=== PATIENT | female | born 2000 | race Caucasian/White ===

== ENCOUNTER 2022-03-04 12:33 | Emergency (ER) | payer MEDICAID, SELFPAY ==
[2022-03-04 13:24] VITALS: BP 130/58; PULSE 93; RESP 16; TEMP 36.3; O2SAT 100
[2022-03-04 13:44] VITALS: BP 130/58; PULSE 93; RESP 16; TEMP 36.3; O2SAT 100
--- NOTE | 2022-03-04 14:36 | ED.GENADULT ---
HPI - General Adult General Chief complaint: Abdominal Pain Stated complaint: Abdominal Pain Source: patient Mode of arrival: ambulatory Limitations: no limitations History of Present Illness HPI narrative: Patient presents for evaluation of left-sided pelvic cramping that occurred last night. Symptoms occurred approximately 1 hour and resolved. Pain radiated to the left side of her back down her left lower extremity. She has had similar symptoms in the past around the time she is menstruating. She is getting ready to start her period in the next week or so. She is not on contraception. She states she has had some increase in bleeding during her periods since she delivered her daughter vaginally about one year ago. She states yesterday and today she had some lower pelvic pain during receptive vaginal intercourse. No fever, chills, nausea, vomiting, urinary symptoms. No additional complaints or concerns. Related Data Allergies Allergy/AdvReac Type Severity Reaction Status Date / Time No Known Allergies Allergy Verified 03/04/22 13:44 Review of Systems Review of Systems: CONSTITUTIONAL: Denies fever, chills, or sweats. EYES: Denies visual changes, redness, or discharge. ENT: Denies rhinorrhea, congestion, sore throat, or otalgia. CARDIOVASCULAR: Denies chest pain, palpitations, or edema. RESPIRATORY: Denies cough or dyspnea. GASTROINTESTINAL: Denies abdominal pain, nausea, vomiting, or diarrhea. GENITOURINARY: Reports left-sided pelvic pain last night, now resolved. Denies vaginal bleeding/discharge/urinary symptoms. Reports some pelvic pain with receptive anal intercourse. SKIN: Denies rash or itching. MUSCULOSKELETAL: Denies back pain, joint pain, or myalgia. NEUROLOGIC: Denies headache, numbness, dizziness, or weakness. PSYCHIATRIC: Denies anxiety or depression. [facility] Past Medical History Medical History (Updated 03/04/22 @ 15:10 by William Spencer, RENNY, ) No pertinent past medical history Surgical History Surgical History No pertinent past surgical history Family History Family History Mother Family history non-contributory Social History Social History (Updated 03/04/22 @ 14:39 by William Spencer, RENNY, BC) Smoking status: Never smoker Alcohol intake: never Substance use: never Gender identity (if verbalized by the patient): Female Sexual Orientation (if Verbalized by the Patient): Straight or Heterosexual Spiritual care concerns: No Exam Narrative: GENERAL: Well-appearing, well-nourished, and in no acute distress. HEAD: Normocephalic, atraumatic. EYES: PERRLA and EOMI. ENT: Nares clear, no rhinorrhea or epistaxis. Mucous membranes moist. Oropharynx without tonsillar hypertrophy exudate or other lesions. Bilateral TMs pearly ortega nonbulging NECK: Supple. No adenopathy or masses. No carotid bruits or JVD CHEST: Clear to auscultation. No respiratory distress. No wheezes rales or rhonchi HEART: Regular rate and rhythm. No murmur heard. Normal peripheral pulses. ABDOMEN: Soft, nontender, nondistended, normal active bowel sounds. VAGINAL: No external genital lesions. No adnexal tenderness. No cervical motion tenderness. Moderate amount of milky white discharge in vaginal vault EXTREMITIES: Normal range of motion. No edema. SKIN: Warm, dry, no rash. NEURO: No focal deficits. Alert and oriented x3. PSYCH: Normal mood and affect. Course Course Emergency Course: This is a 22-year-old female who presented for evaluation of left-sided pelvic pain last night that has since resolved and additional pelvic discomfort that occurs during sexual intercourse. It sounds like she has recurrent pain around the time of her menstruation. I believe this is most consistent with ovarian cyst. She would likely benefit from a nonemergent ultrasound. She is not experiencing pain at t
== END 2022-03-04 15:12 | disposition home or self-care (01) ==
PROVIDERS: Emergency Provider Nurse Practitioner
DX: N76.0 Acute vaginitis (principal); R10.2 Pelvic and perineal pain
CPT/HCPCS: 81003; 81025; 87070; 87491; 87591; 87661; 99214; G0463

== ENCOUNTER 2022-07-12 16:36 | Emergency (ER) | payer MEDICAID, SELFPAY ==
[2022-07-12 16:44] VITALS: BP 130/64; PULSE 79; RESP 16; TEMP 36.8; O2SAT 99
--- NOTE | 2022-07-12 17:13 | ED.NAVMDI ---
HPI - Nausea/Vomiting/Diarrhea General Chief complaint: Nausea/Vomiting/Diarrhea Stated complaint: nausea and vomiting Source: patient and RN notes reviewed History of Present Illness HPI Narrative: 21-year-old female presents to urgent care with complaints vomiting x2 days. Patient states she is able to keep fluids down but not food. Patient reports intermittent stomach pains but nothing significant. Denies any diarrhea, fevers, chills, dysuria, chest pain, or shortness of breath. Patient does report headaches here and there. Patient states she is approximately 7 weeks . 3 para 1. Some parts of this dictation were generated by voice recognition software and may contain typographical and/or grammatical inaccuracies. Related Data Allergies Allergy/AdvReac Type Severity Reaction Status Date / Time No Known Allergies Allergy Verified 03/04/22 13:44 Review of Systems Review of Systems: CONSTITUTIONAL: Denies fever, chills, or sweats. EYES: Denies visual changes, redness, or discharge. ENT: Denies otalgia and sore throat CARDIOVASCULAR: Denies chest pain, palpitations, or edema. RESPIRATORY: Denies cough or dyspnea. GASTROINTESTINAL: Vomiting GENITOURINARY: Denies dysuria or hematuria. SKIN: Denies rash or itching. MUSCULOSKELETAL: Denies back pain, joint pain, or myalgia. NEUROLOGIC: Headache PMFSH Past Medical History Medical History (Updated 07/12/22 @ 17:16 by Jazmín Moya, FARM EQUIPMENT OPERATOR) No pertinent past medical history Surgical History Surgical History No pertinent past surgical history Family History Family History Mother Family history non-contributory Social History Social History (Updated 03/04/22 @ 14:39 by William Spencer, [facility], ) Smoking status: Never smoker Alcohol intake: never Substance use: never Gender identity (if verbalized by the patient): Female Sexual Orientation (if Verbalized by the Patient): Straight or Heterosexual Spiritual care concerns: No Comments At the time of my signature, I reviewed and agree with the nursing past medical, surgical, social, and family history. There is no relevant family history pertinent to the patient complaint. Exam Narrative: GENERAL: This is a well-nourished, well-developed patient, in no apparent distress. HEAD: normocephalic, atraumatic. EYES: PERRL. Sclera clear/white. Vision is grossly intact. EARS: External ears normal, auditory canals clear and without drainage, TMs normal without perforation. Hearing grossly intact. NOSE: External nose normal with no obvious nasal discharge, nares without redness, no rhinorrhea. THROAT: Mucous membranes moist, posterior pharynx clear. NECK: Neck supple, non-tender without lymphadenopathy, masses or thyromegaly. CARDIOVASCULAR: Regular rate and rhythm without murmurs, gallops, or rubs. RESPIRATORY: Clear to auscultation. Breath sounds equal bilaterally. No wheezes, rales, or rhonchi. GASTROINTESTINAL: Abdomen soft, non-tender, nondistended. Bowel sounds are active. No hepato-splenomegaly, or palpable masses. No guarding. SKIN: warm, intact with no suspicious lesions or rash, good texture and turgor. NEURO: awake, alert, and oriented to person, place and time. There were no obvious focal neurologic abnormalities. Course Course Level of Care: Express Care Visit Vital Signs Vital signs: Vital Signs Temperature 98.3 F 07/12/22 16:44 Pulse Rate 79 07/12/22 16:44 Respiratory Rate 16 07/12/22 16:44 Blood Pressure 130/64 07/12/22 16:44 Pulse Oximetry 99 07/12/22 16:44 Oxygen Delivery Room Air 07/12/22 16:44 Temperature 98.3 F 07/12/22 16:44 Pulse Rate 79 07/12/22 16:44 Respiratory Rate 16 07/12/22 16:44 Blood Pressure 130/64 07/12/22 16:44 Pulse Oximetry 99 07/12/22 16:44 Oxygen Delivery Room Air 07/12/22 16:44 Review
== END 2022-07-12 17:19 | disposition home or self-care (01) ==
PROVIDERS: Emergency Provider Nurse Practitioner Family; PCP Emergency Medicine
DX: K52.9 Noninfective gastroenteritis and colitis, unspecified (principal)
CPT/HCPCS: 99213; G0463

== ENCOUNTER 2022-07-23 19:54 | Emergency (ER) | payer MEDICAID, SELFPAY ==
--- NOTE | 2022-07-23 19:55 | ED.NAVMDI ---
HPI - Nausea/Vomiting/Diarrhea General Chief complaint: Nausea/Vomiting/Diarrhea Stated complaint: nausea Time Seen by Provider: 07/23/22 19:55 Source: patient and RN notes reviewed History of Present Illness HPI Narrative: Patient is a 21-year-old female who presents to urgent care with complaints of nausea and vomiting during . Patient is approximately 8 weeks and has vomited 3 times today. Patient has not been seen by an OBGYN but came here last week and was given Zofran for her symptoms. Patient is requesting another refill of the Zofran. Denies any abdominal pain, vaginal bleeding. No other acute complaints. No acute distress noted. Patient aware of the plan of care. Some parts of this dictation were generated by voice recognition software and may contain typographical and/or grammatical inaccuracies. Related Data Allergies Allergy/AdvReac Type Severity Reaction Status Date / Time No Known Allergies Allergy Verified 03/04/22 13:44 Review of Systems Review of Systems: CONSTITUTIONAL: Denies fever, chills, or sweats. EYES: Denies visual changes, redness, or discharge. ENT: Denies rhinorrhea, congestion, sore throat, or otalgia. CARDIOVASCULAR: Denies chest pain, palpitations, or edema. RESPIRATORY: Denies cough or dyspnea. GASTROINTESTINAL: Reports of nausea and vomiting without abdominal pain GENITOURINARY: Denies dysuria or hematuria. SKIN: Denies rash or itching. MUSCULOSKELETAL: Denies back pain, joint pain, or myalgia. NEUROLOGIC: Denies headache, numbness, or weakness. All other systems reviewed are negative, except as documented in HPI. [facility] Past Medical History Medical History (Updated 07/23/22 @ 20:03 by RENNY Og) No pertinent past medical history Surgical History Surgical History No pertinent past surgical history Family History Family History Mother Family history non-contributory Social History Social History (Updated 03/04/22 @ 14:39 by RENNY Maher, ) Smoking status: Never smoker Alcohol intake: never Substance use: never Gender identity (if verbalized by the patient): Female Sexual Orientation (if Verbalized by the Patient): Straight or Heterosexual Spiritual care concerns: No Comments At the time of my signature, I reviewed and agree with the nursing past medical, surgical, social, and family history. There is no relevant family history pertinent to the patient complaint. Exam Narrative: GENERAL: This is a well-nourished, well-developed patient, in no apparent distress. HEAD: normocephalic, atraumatic. EYES: PERRL. Sclera clear/white. Vision is grossly intact. EARS: External ears normal NOSE: External nose normal with no obvious nasal discharge, nares without redness, no rhinorrhea. THROAT: Mucous membranes moist NECK: Neck supple GASTROINTESTINAL: Abdomen soft, non-tender, nondistended. Bowel sounds are active. SKIN: warm, intact with no suspicious lesions or rash, good texture and turgor. NEURO: awake, alert, and oriented to person, place and time. There were no obvious focal neurologic abnormalities. EXTREMITIES: No clubbing, cyanosis, or edema. Course Course Level of Care: Express Care Visit Vital Signs Vital signs: Vital Signs Temperature 99.3 F 07/23/22 19:56 Pulse Rate 76 07/23/22 19:56 Respiratory Rate 20 07/23/22 19:56 Blood Pressure 137/75 07/23/22 19:56 Pulse Oximetry 100 07/23/22 19:56 Oxygen Delivery Room Air 07/23/22 19:56 Temperature 99.3 F 07/23/22 20:01 Pulse Rate 76 07/23/22 20:01 Respiratory Rate 20 07/23/22 20:01 Blood Pressure 137/75 07/23/22 20:01 Pulse Oximetry 100 07/23/22 20:01 Oxygen Delivery Room Air 07/23/22 20:01 Reviewed MDM - Nausea/Vomiting/Diarrhea MDM Narrative Medical decision making narrative: Explained to the hakna
[2022-07-23 19:56] VITALS: BP 137/75; PULSE 76; RESP 20; TEMP 37.4; O2SAT 100
[2022-07-23 20:01] VITALS: BP 137/75; PULSE 76; RESP 20; TEMP 37.4; O2SAT 100
== END 2022-07-23 20:07 | disposition home or self-care (01) ==
PROVIDERS: Emergency Provider Nurse Practitioner Family
DX: O26.891 Other specified pregnancy related conditions, first trimester (principal); R11.2 Nausea with vomiting, unspecified; Z3A.08 8 weeks gestation of pregnancy
CPT/HCPCS: 99213; G0463

== ENCOUNTER 2022-11-21 16:03 | Emergency (ER) | payer OTHER, SELFPAY ==
[2022-11-21 16:09] VITALS: BP 128/59; PULSE 82; RESP 16; TEMP 35; O2SAT 100
--- NOTE | 2022-11-21 16:13 | ED.GENADULT ---
HPI - General Adult General Chief complaint: Skin/Abscess/Foreign Body Stated complaint: upper left thigh wound Source: patient and RN notes reviewed History of Present Illness HPI narrative: 21-year-old female presents to the [facility] today complaining of possible ringworm to her left thigh. Patient stated she was camping last and noticed a lesion on her left thigh on Saturday. Patient concern for ringworm to her left upper thigh. Patient does report that it is itchy. Patient denies any drainage to the wound. Denies any fevers, chills, body aches, nausea, vomiting, diarrhea. Patient has tried anything [id number] to help with symptoms. Related Data Allergies Allergy/AdvReac Type Severity Reaction Status Date / Time No Known Allergies Allergy Verified 11/21/22 16:23 Review of Systems Review of Systems: CONSTITUTIONAL: Denies fever, chills, or sweats. EYES: Denies visual changes, redness, or discharge. ENT: Denies otalgia and sore throat CARDIOVASCULAR: Denies chest pain, palpitations, or edema. RESPIRATORY: Denies cough or dyspnea. GASTROINTESTINAL: Denies abdominal pain, nausea, vomiting, or diarrhea. GENITOURINARY: Denies dysuria or hematuria. SKIN: Positive for circular lesion to left thigh.. MUSCULOSKELETAL: Denies back pain, joint pain, or myalgia. NEUROLOGIC: Denies headache, numbness, or weakness. Pertinent positives per HPI. [facility] Past Medical History Medical History (Updated 11/21/22 @ 16:44 by Jazmín Moya, PRECISION L[employer] GRINDER APPRENTICE) No pertinent past medical history Surgical History Surgical History No pertinent past surgical history Family History Family History Mother Family history non-contributory Social History Social History (Updated 03/04/22 @ 14:39 by William Spencer, [facility], ) Smoking status: Never smoker Alcohol intake: never Substance use: never Gender identity (if verbalized by the patient): Female Sexual Orientation (if Verbalized by the Patient): Straight or Heterosexual Spiritual care concerns: No Comments At the time of my signature, I reviewed and agree with the nursing past medical, surgical, social, and family history. There is no relevant family history pertinent to the patient complaint. Exam Narrative: GENERAL: This is a well-nourished, well-developed patient, in no apparent distress. HEAD: normocephalic, atraumatic. EYES: Sclera clear/white. Vision is grossly intact. EARS: External ears normal, auditory canals clear and without drainage, TMs normal without perforation. Hearing grossly intact. NOSE: External nose normal with no obvious nasal discharge, nares without redness, no rhinorrhea. THROAT: Mucous membranes moist, posterior pharynx clear. NECK: Neck supple, non-tender without lymphadenopathy, masses or thyromegaly. CARDIOVASCULAR: Regular rate and rhythm without murmurs, gallops, or rubs. RESPIRATORY: Clear to auscultation. Breath sounds equal bilaterally. No wheezes, rales, or rhonchi. GASTROINTESTINAL: Abdomen soft, non-tender, nondistended. Bowel sounds are active. No hepato-splenomegaly, or palpable masses. No guarding. SKIN: There is a circular lesion to the left upper lateral measuring about 1 cm in diameter with a broken skin circular border that is mildly erythemic. NEURO: awake, alert, and oriented to person, place and time. There were no obvious focal neurologic abnormalities. EXTREMITIES: No clubbing, cyanosis, or edema. No joint tenderness, effusion, or edema noted. BACK: Nontender without deformity or crepitus. No flank tenderness. Course Course Level of Care: Express Care Visit Vital Signs Vital signs: Vital Signs Temperature 95 F L 11/21/22 16:09 Pulse Rate 82 11/21/22 16:09 Respiratory Rate 16 11/21/22 16:09 Blood Pressure 128/59 L 11/21/22 16:09 Pulse Oximetry 100 11/21/22 16:09 Oxyg
== END 2022-11-21 16:45 | disposition home or self-care (01) ==
PROVIDERS: Emergency Provider Nurse Practitioner Family
DX: R21 Rash and other nonspecific skin eruption (principal)
CPT/HCPCS: 99213; G0463

== ENCOUNTER 2022-11-28 10:53 | Emergency (ER) | payer OTHER, SELFPAY ==
[2022-11-28 11:00] VITALS: BP 139/64; PULSE 100; RESP 20; TEMP 37.4; O2SAT 100
--- NOTE | 2022-11-28 11:03 | ED.URI ---
HPI - URI/Sore Throat General Chief Complaint: Upper Respiratory Infection Stated Complaint: throat head body aches Source: patient and RN notes reviewed Mode of arrival: ambulatory Limitations: no limitations History of Present Illness HPI Narrative: patient is a 22-year-old female who presents to the [facility] with complaints of headache, generalized body aches, and sore throat starting yesterday. Patient also endorses nasal congestion and drainage. She denies fevers but reports sweats and chills. Patient denies recent cough, chest pain, or shortness of breath. Denies abdominal pain, nausea, vomiting, diarrhea. Patient is currently 27 weeks with her 2nd with 1 living child at home. She denies any -related symptoms at this time. Denies abdominal cramping or vaginal bleeding. Related Data Home Medications Medication Instructions Recorded Confirmed vit no.95-ferrous 1 tablet PO DAILY 11/28/22 11/28/22 fumarate 28 mg-folic acid 800 mcg tablet () Allergies Allergy/AdvReac Type Severity Reaction Status Date / Time No Known Allergies Allergy Verified 11/21/22 16:23 Review of Systems Review of Systems: CONSTITUTIONAL: Denies fever, but reports chills and sweats. EYES: Denies visual changes, redness, or discharge. ENT: Denies otalgia but reports sore throat and nasal congestion. CARDIOVASCULAR: Denies chest pain, palpitations, or edema. RESPIRATORY: Denies cough or dyspnea. GASTROINTESTINAL: Denies abdominal pain, nausea, vomiting, or diarrhea. GENITOURINARY: Denies dysuria or hematuria. SKIN: Denies rash or itching. MUSCULOSKELETAL: Denies back pain, joint pain. Reports myalgia. NEUROLOGIC: Reports headache but denies numbness or weakness. Pertinent positives per HPI. [facility] Past Medical History Medical History No pertinent past medical history Surgical History Surgical History No pertinent past surgical history Family History Family History Mother Family history non-contributory Social History Social History Smoking status: Never smoker Alcohol intake: never Substance use: never Gender identity (if verbalized by the patient): Female Sexual Orientation (if Verbalized by the Patient): Straight or Heterosexual Spiritual care concerns: No Comments At the time of my signature, I reviewed and agree with the nursing past medical, surgical, social, and family history. There is no relevant family history pertinent to the patient complaint. Exam Narrative: GENERAL: This is a well-nourished, well-developed patient, in no apparent distress. HEAD: normocephalic, atraumatic. EYES: Sclera clear/white. Vision is grossly intact. EARS: External ears normal, auditory canals clear and without drainage, TMs normal without perforation. Hearing grossly intact. NOSE: External nose normal with no obvious nasal discharge, nares without redness, no rhinorrhea. THROAT: Mucous membranes moist, Oropharyngeal erythema without exudate. NECK: Neck supple, non-tender without lymphadenopathy, masses or thyromegaly. CARDIOVASCULAR: Regular rate and rhythm without murmurs, gallops, or rubs. RESPIRATORY: Clear to auscultation. Breath sounds equal bilaterally. No wheezes, rales, or rhonchi. GASTROINTESTINAL: Abdomen soft, non-tender, nondistended. Bowel sounds are active. No hepato-splenomegaly, or palpable masses. No guarding. SKIN: warm, intact with no suspicious lesions or rash, good texture and turgor. NEURO: awake, alert, and oriented to person, place and time. There were no obvious focal neurologic abnormalities. EXTREMITIES: No clubbing, cyanosis, or edema. No joint tenderness, effusion, or edema noted. BACK: Nontender without deformity or c
== END 2022-11-28 11:35 | disposition home or self-care (01) ==
PROVIDERS: Emergency Provider Nurse Practitioner
DX: O99.512 Diseases of the respiratory system complicating pregnancy, second trimester (principal); Z3A.27 27 weeks gestation of pregnancy; J02.0 Streptococcal pharyngitis
CPT/HCPCS: 87081; 87880; 99213; G0463